=== PATIENT | female | born 2000 | race Caucasian/White ===

== ENCOUNTER 2022-08-22 02:51 | Emergency (ER) | payer OTHER ==
[2022-08-22 03:06] VITALS: BMI 40.4
[2022-08-22 04:15] LABS: HEMATOCRIT 40.6 % (32.4-45.2); HEMOGLOBIN 13.9 GM/dL (10.7-15.3); MCH 29.4 pg (25.7-33.7); MCHC 34.3 g/dl (32.0-36.0); MEAN CELL VOLUME 85.7 fl (80-96); MEAN PLT VOLUME 9.1 fl (7.5-11.1); PLATELET COUNT 227 10^3/uL (134-434); RBC 4.74 M/mm3 (3.60-5.2); RDW 13.8 % (11.6-15.6); WHITE BLOOD COUNT 11.6 K/mm3 (4.0-10.0)
[2022-08-22 04:28] LABS: INR 1.1 (0.83-1.09); PROTHROMBIN TIME (PATIENT) 12.7 SEC (9.7-13.0)
[2022-08-22 04:31] LABS: ACTIVATED PTT 29.1 SECONDS (25.2-36.5)
[2022-08-22 04:34] LABS: CALCIUM 8.7 mg/dL (8.5-10.1)
[2022-08-22 04:35] LABS: ALBUMIN 4.2 g/dl (3.4-5.0); BLOOD UREA NITROGEN 12.2 mg/dL (7-18)
[2022-08-22 04:39] LABS: BILIRUBIN,TOTAL 0.2 mg/dL (0.2-1); TOT PROT 7.6 g/dl (6.4-8.2)
[2022-08-22 06:36] VITALS: TEMP 98.6
[2022-08-22 08:43] LABS: EPI CELLS 4 /uL (0-25.1); HYALINE CASTS 0 /uL (0-3.1); URINE APPEARANCE CLOUDY; URINE BACTERIA 5 /uL (0-1359); URINE BILIRUBIN NEGATIVE (NEGATIVE); URINE COLOR ORANGE; URINE GLUCOSE (UA) NEGATIVE (NEGATIVE); URINE KETONE TRACE (NEGATIVE); URINE LEUK ESTERASE TRACE (NEGATIVE); URINE NITRITE NEGATIVE (NEGATIVE); URINE PROTEIN 1+ (NEGATIVE); URINE RBC 12607 /uL (0-23.9); URINE WBC 30 /uL (0-25.8)
[2022-08-22 09:55] VITALS: BP 128/91; PULSE 92; RESP 18
== END 2022-08-22 09:56 | disposition home or self-care (01) ==
LOC: JER 02:51
DX: N93.9 Abnormal uterine and vaginal bleeding, unspecified (principal)
CPT/HCPCS: 36415; 76830-TC; 80053; 81003; 84703; 85027; 85610; 85730; 86850; 86900; 86901; 87086; 99284-25

== ENCOUNTER 2022-10-03 16:38 | Emergency (ER) | payer OTHER ==
[2022-10-03 17:08] VITALS: RESP 20; BMI 39.6
[2022-10-03 18:13] VITALS: BP 124/44; PULSE 107; TEMP 98.4
[2022-10-03 18:21] LABS: THROAT:GRP A STREP DETECTED (NOTDETECTED)
== END 2022-10-03 18:23 | disposition home or self-care (01) ==
LOC: JERFT 16:38 → JER 16:38 → JERFT 18:23
DX: J02.0 Streptococcal pharyngitis (principal); R68.83 Chills (without fever); J04.0 Acute laryngitis; R09.81 Nasal congestion; R09.82 Postnasal drip
CPT/HCPCS: 0241U-QW; 87651; 99283-25